=== PATIENT | male | born 1965 | race Caucasian/White ===

== ENCOUNTER 2019-01-26 16:50 | Emergency (ER) | payer MEDICAID ==
[~2019-01-26] VITALS: Ht 172.7 cm; Wt 92.7 kg
[~2019-01-26 16:50] MED LIST: HYDR-3498 PO; IBUP800T48 PO
[2019-01-26 17:14] VITALS: Ht 172.7 cm; Wt 92.7 kg
--- NOTE | 2019-01-26 20:22 | ERD ---
ER Documentation Chief Complaint Chief Complaint cold symptoms x 20 days HPI 53-year-old male, previously healthy, presents to the emergency department with acute onset of high fever, runny nose, chest congestion, dry cough and general malaise that started 3 weeks no abdominal pain, no chest pain. Ago. The patient has been receiving mqum-sru-sbbowsa medications without improvement of the symptoms. Otherwise, no shortness of breath, no rashes, no abdominal pain, no chest pain. ROS All systems reviewed and are negative except as per history of present illness. Medications Home Meds Active Scripts Acetaminophen* (Tylenol*) 325 Mg Tablet, 2 TAB PO Q8 PRN for PAIN AND OR ELEVATED TEMP, #20 TAB Prov:MATIAS MARTINEZ MD 01/26/19 Guaifenesin/Dextromethorphan* (Guaifenesin* DM) 1 Each Tablet, 1 TAB PO Q12 for 5 Days, #10 TAB.SA Prov:MATIAS MARTINEZ MD 01/26/19 Albuterol Sulfate* (Albuterol Sulfate* Liq) 2 Mg/5 Ml Syrup, 2 MG PO TID for 5 Days, #120 ML Prov:MATIAS MARTINEZ MD 01/26/19 Amoxicillin* (Amoxicillin*) 500 Mg Cap, 500 MG PO TID for 10 Days, CAP Prov:MATIAS MARTINEZ MD 01/26/19 Hydrocodone Bit-Acetaminophen* (Christoval*) 5-325 Mg Tab, 1 TAB PO Q6 PRN for PAIN, #20 TAB Prov:JOSEPH MEZA PA-C 11/21/15 Ibuprofen* (Motrin*) 800 Mg Tab, 800 MG PO Q6, #30 TAB Prov:JOSEPH MEZA PA-C 11/21/15 Allergies Allergies: Coded Allergies: No Known Drug Allergies (Verified Allergy, Unknown, 11/21/15) PMhx/Soc History of Surgery: Yes (right kidney stone) Hx Alcohol Use: No Hx Substance Use: No Hx Tobacco Use: No Smoking Status: Never smoker Physical Exam Vitals Vital Signs Date Temp Pulse Resp B/P (MAP) Pulse Ox O2 O2 Flow FiO2 Time Delivery Rate 01/26/19 99.2 113 18 160/68 96 17:14 (98) Physical Exam Const: No acute distress Head: Atraumatic Eyes: Normal Conjunctiva ENT: Normal External Ears, Nose and Mouth. Neck: Full range of motion. No meningismus. Resp: Rhonchi to auscultation bilaterally Cardio: Regular rate and rhythm, no murmurs Abd: Soft, non tender, non distended. Normal bowel sounds Skin: No petechiae or rashes Back: No midline or flank tenderness Ext: No cyanosis, or edema Neur: Awake and alert Psych: Normal Mood and Affect Procedures/MDM At the time of discharge, patient with nontoxic appearance, vital signs stable, no respiratory distress. Differential diagnosis include but not limited to: upper vs lower respiratory infection bacterial/viral/fungal. Asthma, COPD, pneumonitis, allergies, GERD. Less likely pulmonary embolism, cardiac related or malignancy, but still is a possibility. Physical examination and clinical presentation consistent most likely with viral infection with early superimposed bacterial infection. During the ED course the patient remained stable, no new complaints. Treatment options and clinical impression discussed with the patient who agrees with management. The patient is stable to be treated outpatient and will be discharged home. Some side effects of prescribed medications (headache, rash, nausea, vomiting, diarrhea, interactions with other medications) were reviewed. The patient needs to follow up with the primary care provider in the next 48h. If symptoms persist, worsen or new symptoms develop, then patient should return to the ED immediately. Disclaimer: Inadvertent spelling and grammatical errors are likely due to EHR/dictation software use and do not reflect on the overall quality of patient care. Also, please note that the electronic time recorded on this note does not necessarily reflect the actual time of the patient encounter. Departure Diagnosis: Primary Impression: Cough Additional Impression: Fever Condition: Stable Additional Instructions: Muchas freya por [facility] para [place] servicio. Esperamos que en [place] visita a la vinh de emergencia [place] problema medico haya sido solucionado y que se sienta mucho mejor. Para estar seguros que [place] mejoria sigue en proceso, le pedimos el favor de hacer bella ana de seguimiento medico con [place] doctor primario en los proximos 2-4 rush. Lleve con usted estos documentos y las medicinas recetadas. Si jahaira sintomas empeoran, NO SE ESPERE, por favor regrese a vinh de emergencia INMEDIATAMENTE. En vaughn que usted no tenga un mdico de atencin primaria: Llame al mdico o clnica comunitaria de referencia que aparece abajo cira las horas de consultorio para hacer bella ana para que le vean. CLINICAS: [facility] [phone] [id number] [facility] [phone] [id number] [facility] [phone] [facility] [phone] [facility] [phone] [id number] [facility]. [phone] MATIAS WISE MD Jan 26, 2019 20:22
[2019-01-26] MEDS ORDERED: GUAI-158 PO (20:42)
[2019-01-26] MEDS ORDERED: ALBU2SYR3 PO (20:42)
[2019-01-26] MEDS ORDERED: ACET325T33 PO (20:42)
[2019-01-26] MEDS ORDERED: AMOX500C2 PO (20:42)
[2019-01-26 20:51] VITALS: BP 150/81; PULSE 82; RESP 20
== END 2019-01-26 20:52 | disposition home or self-care (01) ==
LOC: FTE 16:50
DX: R05 Cough (principal); R50.9 Fever, unspecified
CPT/HCPCS: 99283